=== PATIENT | female | born 1995 | race Caucasian/White ===

== ENCOUNTER 2017-01-23 11:20 | Emergency (ER) | payer OTHER ==
[~2017-01-23] VITALS: Ht 172.7 cm; Wt 77.1 kg
[2017-01-23] MEDS ORDERED: VENTOLIN HFA INH8 GM INH (13:53)
[2017-01-23] MEDS ORDERED: NORCO 5-325 TA1 EACH PO (13:54)
[2017-01-23 13:56] VITALS: BP 112/80
== END 2017-01-23 14:14 | disposition home or self-care (01) ==
LOC: ER 11:20
DX: M79.645 Pain in left finger(s) (principal); K58.9 Irritable bowel syndrome, unspecified; J45.909 Unspecified asthma, uncomplicated

== ENCOUNTER 2017-03-20 07:27 | Emergency (ER) | payer OTHER ==
[~2017-03-20] VITALS: Ht 162.6 cm; Wt 65.8 kg
[~2017-03-20 07:27] MED LIST: NORCO 5-325 TA1 EACH PO; VENTOLIN HFA INH8 GM INH
[2017-03-20] MEDS ORDERED: NORCO 5-325 TA1 EACH PO (08:16)
[2017-03-20 08:43] VITALS: BP 124/62
== END 2017-03-20 08:44 | disposition home or self-care (01) ==
LOC: ER 07:27
DX: S50.01XA Contusion of right elbow, initial encounter (principal); J45.909 Unspecified asthma, uncomplicated; W22.8XXA Striking against or struck by other objects, initial encounter; Y93.89 Activity, other specified; Y92.89 Other specified places as the place of occurrence of the external cause; Y99.8 Other external cause status

== ENCOUNTER 2017-06-12 20:56 | Emergency (ER) | payer OTHER ==
[~2017-06-12] VITALS: Ht 162.6 cm; Wt 65.8 kg
[2017-06-12 21:33] LABS: URINE BILIRUBIN NEGATIVE (Negative); URINE BLOOD NEGATIVE (Negative); URINE COLOR YELLOW; URINE GLUCOSE-RANDOM* NEGATIVE (Negative); URINE KETONES NEGATIVE (Negative); URINE NITRITE NEGATIVE (Negative); URINE PROTEIN (DIPSTICK) NEGATIVE (Negative); URINE UROBILINOGEN 0.2 E.U./dl (0.2-1.0)
[2017-06-12 21:45] LABS: SQUAMOUS >10 Many /LPF (0-3)
[2017-06-12 21:46] LABS: CASTS None Seen /LPF (None Seen); CRYSTALS None Seen /LPF (None Seen)
[2017-06-12 21:47] LABS: URINE RBC 0-2 Rare /HPF (0-2); URINE WBC 6-15 Few /HPF (0-5)
[2017-06-12] MEDS ORDERED: FLONASE 0.05%50 MCG NASAL (22:07)
[2017-06-12] MEDS ORDERED: SUDAFED 12 HR120 MG PO (22:07)
[2017-06-12] MEDS ORDERED: CLARITIN10 MG PO (22:07)
[2017-06-12 22:23] VITALS: BP 118/75
== END 2017-06-12 22:24 | disposition home or self-care (01) ==
LOC: ER 20:56
PROVIDERS: Emergency Medicine
DX: J06.9 Acute upper respiratory infection, unspecified (principal); J45.909 Unspecified asthma, uncomplicated; K58.9 Irritable bowel syndrome, unspecified